=== PATIENT | female | born 1955 | race Caucasian/White ===

== ENCOUNTER 2022-02-22 10:30 | Outpatient (RCR) | payer BC, SELFPAY ==
--- NOTE | 2022-02-01 14:59 | URNOTE ---
Prior authorization received for [employer]ure[employer] Partager ([id number]). Per [employer] for - Prior authorization is not required Ref#[id number].
[2022-02-22 11:27] LABS: Calcium* 10.2 mg/dL (8.4-10.6); Creatinine* 0.6 mg/dL (0.5-1.5); Estimated Glomerular Filt Rate 100 ml/min
[2022-02-22] MEDS: DENOSUMAB 60 MG/ML SYRINGE SUBCUT (11:48)
--- NOTE | 2022-02-22 13:08 | ONC.NURNOTE ---
Accompanied patient to her oncology visit today. Side effects of Prolia reviewed and printed information given to patient. Consent obtained.
--- NOTE | 2022-04-10 09:00 | PC.NURSE ---
Pt called today to inquire about the location for her MRI. RN reviewed notes and shared it would be [facility] in [place] (now called [facility]). Provided pt with contact number to call and schedule.
== END 2022-05-28 23:59 | disposition home or self-care (01) ==
LOC: CCIC 10:30
PROVIDERS: PCP Physician Assistant; Referring Provider Physician Assistant; Visit Provider Internal Medicine Hematology & Oncology
DX: C50.911 Malignant neoplasm of unspecified site of right female breast (principal); Z17.0 Estrogen receptor positive status [ER+]; Z79.811 Long term (current) use of aromatase inhibitors; R23.2 Flushing; N95.2 Postmenopausal atrophic vaginitis; E04.1 Nontoxic single thyroid nodule
CPT/HCPCS: 36415; 82310; 82565; 96372; 99212; 99214; 99215; J0897

== ENCOUNTER 2022-05-24 09:41 | Outpatient (CLI) | payer BC, SELFPAY ==
--- NOTE | 2022-05-24 09:45 | CRLHL7_ITS ---
For Patients: As a result of the Century Cures Act, medical imaging exams and procedure reports are released immediately into your electronic medical record. You may view this report before your referring provider. If you have questions, please contact your health care provider. INDICATION: Thyroid nodules COMPARISON: 05/12/2021 [facility] TECHNIQUE: Avelar scale and color Doppler images were acquired of the thyroid gland. FINDINGS: The thyroid gland demonstrates heterogeneous echogenicity and has a smooth outer contour. The right lobe measures 6.4 x 2.2 x 2.2 cm and the left lobe measures 6.5 x 2.0 x 1.7 cm in size. The isthmus measures 1.1 cm. Stable hypoechoic nodule within the right thyroid lobe measuring 1.0 x 0.7 x 1.3 cm, previously measuring 1.1 cm. Additional hypoechoic nodule right thyroid lobe measuring 1.2 x 0.7 x 0.7 cm, previously measuring 1.0 cm. Solid and cystic nodule inferior pole left thyroid lobe measures 1.8 x 1.3 x 1.4 cm, previously measuring 1.5 cm. Stable near isoechoic nodule measuring 8 x 5 x 6 millimeters, previously measuring 6 millimeters. The color Doppler images demonstrate normal vascularity. There is no evidence of cervical lymphadenopathy or parathyroid mass. IMPRESSION: Overall stable morphology and size of bilateral nodules. Additional follow-up in 1 year suggested. Dictated by Kamari Beckford MD @ 05/24/2022 11:52:36 AM (Electronically Signed)
== END 2022-05-24 09:42 | disposition home or self-care (01) ==
LOC: US 09:43
PROVIDERS: PCP Physician Assistant; Visit Provider Internal Medicine Hematology & Oncology
DX: E04.2 Nontoxic multinodular goiter (principal)
CPT/HCPCS: 76536

== ENCOUNTER 2022-12-06 12:30 | Outpatient (RCR) | payer BC, MEDICARE, SELFPAY ==
--- NOTE | 2022-08-21 15:38 | ONC.NURNOTE ---
prescription for anastrozole refilled by Dr. Mcdermott and sent to pt's pharmacy.
[2022-08-24 13:41] LABS: Calcium* 9.6 mg/dL (8.4-10.6); Creatinine* 0.6 mg/dL (0.5-1.5); Est. Creatinine Clearance* 55.27; Estimated Glomerular Filt Rate 100 ml/min
[2022-08-24] MEDS: DENOSUMAB 60 MG/ML SYRINGE SUBCUT (14:14)
== END 2022-12-19 23:59 | disposition home or self-care (01) ==
LOC: CCIC 12:30
PROVIDERS: PCP Physician Assistant; Referring Provider Physician Assistant; Visit Provider Internal Medicine Hematology & Oncology
DX: C50.911 Malignant neoplasm of unspecified site of right female breast (principal); Z17.0 Estrogen receptor positive status [ER+]; Z79.811 Long term (current) use of aromatase inhibitors; M85.852 Other specified disorders of bone density and structure, left thigh; R23.2 Flushing; N95.2 Postmenopausal atrophic vaginitis; E04.1 Nontoxic single thyroid nodule; Z90.11 Acquired absence of right breast and nipple
CPT/HCPCS: 36415; 82310; 82565; 96372; 99212; 99213; 99214; J0897

== ENCOUNTER 2023-04-18 12:41 | Outpatient (CLI) | payer MEDICARE, BC, SELFPAY ==
--- OUTSIDE RECORDS SUMMARY | 2023-04-18 12:43 | XMS_ITS ---
Author Name Unknown Organization [facility] Address [address] [place] [address] Care Team Providers Care Kitchen Porter Name Role Phone Unavailable Unavailable Unavailable Surgery Details Not on file Complications Check Surgery Details section. Procedure Estimated Blood Loss Check Surgery Details section. Procedure Findings Check Surgery Details section. Procedure Specimens Taken Check Surgery Details section.
--- OUTSIDE RECORDS SUMMARY | 2023-04-18 12:43 | XMS_ITS | Clinical Summary ---
Author Name Unknown Organization [employer] [facility] Address [place], [place] [address] Care Team Providers Care Entry Level Machine Operator Name Role Phone Arin Mejia Primary Care Provider [phone]- [phone] Allergies Active Allergy Reactions Criticality Noted Date Comments Cephalexin Rash 06/18/2006 Medications Medication Sig Dispensed Refills Start Date End Date Status medication order composerIndications :Invasive ductal carcinoma of breast, right (HC) Dispense right breast mastectomy bra and prosthetic. 3 Device 3 11/17/2021 Active anastrozole (ARIMIDEX) 1 mg tablet Take 1 mg by mouth once daily. 0 05/17/2022 Active calcium carbonate-vitamin D3, 600 mg-400 unit, 600 mg-10 mcg (400 unit) tablet Take 1 Tablet by mouth two times daily with meals. 0 05/28/2022 Active hydroCHLOROthiazide (HCTZ) 25 mg tabletIndications:H TN (hypertension) Take 1 Tablet (25 mg) by mouth once daily. 90 Tablet 3 09/25/2022 Active losartan (COZAAR) 100 mg tabletIndications:H TN (hypertension) Take 1 Tablet (100 mg) by mouth once daily. 90 Tablet 3 09/25/2022 Active BiPapIndications:Ob structive sleep apnea BIPAP machine for home use at pressure: 4-25 PS: 4 , Heated humidifier x 1, Humidifier chamber x 1, Full face mask with cushion x 1, Heated tubing x 1, Headgear x 1, Filters: Disposable x 1pk & Reusable x 1pk, Length of Need: 99 months, Frequency of use: Daily 0 03/07/2023 Active Active Problems Problem Noted Date Diagnosed Date Stenosis of aorta 07/24/2022 Overview: Borderline mild, noted on echocardiogram July 2022. Echocardiogram was done due to new heart murmur. Osteopenia 07/06/2022 Overview: Prolia, managed by Dr. 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 US 05/24/2022, stable. Invasive ductal carcinoma of breast, right 04/19 HTN (hypertension) 06/15/2020 SUZANNE, 02/02/2017 AHI 50 05/25/2017 Morbid obesity with BMI of 40.0-44.9, adult 100 08/2016 Plantar fascial fibromatosis 05/16/2007 ANEMIA/HX 06/18/2006 Helicobacter pylori (H. pylori) 06/18/2006 Resolved Problems Problem Noted Date Diagnosed Date Resolved Date Routine adult health maintenance 12/03/2015 04/23/2020 Overview: Colonoscopy 11/2015 normal repeat in 10 years Encounters Date Type Department Care Team Description 01/23/2023 12:10 PM CUSTOMER SERVICE OPERATOR Office Visit [facility] [address] [place] [address] Maggy Reeves, LEON Person Under Investigation (PUI) (Sore throat, body aches, fatigue x 2 days.) 01/23/2023 Travel from Last 3 Months Immunizations Name Administration Dates Next Due AMB Influenza, IIV4 PF (=>6 mos Flulaval,Fluzone Fluarix)(Flu Clinic Only) 12/29/2015 COVID-19 vaccine (Moderna 100mcg/0.5mL) PF, MDV 04/07/2021,05/14/2020,04/16/2020 Influenza, IIV3 (Age 6-35 mos) 12/14/2010 Influenza, IIV3 (Age >=3 years) 12/11/19 12,12/14/2010,01/25/2008,01/08/20 07,12/20/2005 Influenza, IIV4 01/30/2022, 9,01/10/2018,12/16/19 17,12/29/2015 Influenza,CCIIV4 PRESERV FREE 01/26/2020 Td (Age >=7 Years) 12/07/2003 Tdap 07/06/2022,04/12/2012 Zoster (Shingrix-RZV, recombinant) 02/10/2019, Family History Medical History Relation Name Comments Diabetes Father Heart Disease Father Cancer Mother liver, lung can cer Cancer-breast Other x2 - Maternal and Paternal cousins Cancer-breast Paternal Aunt Cancer-breast Sister Anesthesia Malignant Hyperthermia No Family History Blood Disease No Family History Cancer-colon No Family History Cancer-ovarian No Family History Cancer-prostate No Family History Relation Name Status Comments Father Mother Other Paternal Aunt Sister Social History Tobacco Use Types Packs/Day Years Used Date Smoking Tobacco: Never Smokeless Tobacco: Never Tobacco Cessation:Counseling Given: Yes Alcohol Use Standard Drinks/Week Comments Not Currently 0 (1 standard drink = 0.6 oz pur e alcohol) 2 drinks per 2-3 months PHQ-2 Answer Date Recorded PHQ-2 TOTAL SCORE 0 07/06/2022 Social Connections Answer Date Recorded Frequency of Communication with Friends and Fami ly 0 07/06/2022 Financial Resource Strain Answer Date R ecorded Difficulty of Paying Living Expenses 3 07/06/2022 Difficulty of Paying Living Expenses Not on file 07/06/2022 Food Insecurity Answer Date Recorded Worried About Running Out of Food in the Last Ye ar 1 07/06/2022 Transportation Needs Answer Date Record ed Lack of Transportation (Medical) 1 07/06/2022 Housing Stability Answer Date Recorded Unable to Pay for Housing in the Last Year 1 07/06/2022 Sex and Gender Information Value Date Recorded Sex Assigned at Not on file Gender Identity Not on file Sexual Orientation Not on file Obstetrics History Para Term AB IAB SAB Ectopic Multiple Livin g Live Births 4 3 3 Date Outcome GA Total Labor Labor/2nd/3rd Weight Sex Delivery Anes PTL Elva A1 A5 Name Cl in Term Term Term Comments 1 miscarriage Last Filed Vital Signs Vital Sign Reading Time Taken Comments Blood Pressure 172/72 01/23/2023 1:30 PM CUSTOMER SERVICE OPERATOR Pulse 74 01/23/2023 1:30 PM CUSTOMER SERVICE OPERATOR Temperature 37.1 ??C (98.8 ??F) 01/23/2023 1:30 PM CS T Respiratory Rate 20 01/23/2023 1:30 PM CUSTOMER SERVICE OPERATOR Oxygen Saturation 98% 01/23/2023 1:30 PM CUSTOMER SERVICE OPERATOR Inhaled Oxygen Concentration - - Weight 132.9 kg (293 lb 1.6 oz) 01/23/2023 1:30 PM CUSTOMER SERVICE OPERATOR Height 170.8 cm (5' 7.24) 07/06/2022 1 0:43 AM CDT Body Mass Index 45.57 07/06/2022 10:43 AM CDT Plan of Treatment Upcoming Encounters Date Type Department Care Team (Late st Contact Info) Description 06/07/2023 11:00 AM CDT Office Visit [facility] [address] [place] [address] Marvin Ortiz MD [address] [place] [address] Health Maintenance Due Date Last Done Comments COVID-19 vaccine series ( season) 2022 04/07/2021, 05/14/2020, 04/16/2020 DEXA/DXA scan for age 65+ 2022 Influenza for age 65+ 2022 01/30/2022 , 01/26/2020, 2018, Additional history exists Medicare Wellness for age 65+ 2022 Pneumococcal series for age 65+ (1 of 1 - PCV) 2022 BMI (ht and wt on same day) for age 18+ 07/07/2023 07/06/2022, 05/13/2021, 12/15/2020, Additional history exists Depression screening for age 12+ 07/07/2023 07/06/2022, 05/06/2021, 05/04/2021, Additional history exists Mammogram for age 45-75 07/07/2023 07/07/19 23, 04/15/2021, 04/11/2021, Additional history exists Pap test for age 21-65 07/06/2025 , 07/06/2022, 2018, Additional history exists Colonoscopy through age 75 12/02/202512/02, 12/03/2015, 12/03/2015, Additional history exists Lipids for age 45-75 07/25/2027 07/24/2022, 04/23/2020, 2018, Additional history exists Tetanus booster 07/06/2032 07/06/2022, 03/2012, 12/07/2003 Zoster (shingles) series for age 50+ Completed 02/10/2019, 2018 Hepatitis C screening for ag e 18-79 Completed 07/06/2020 Tdap Completed 07/06/2022, 04/12/2012 HIV for age 15-65 Completed 07/24/2022 Procedures Procedure Name Priority Date/Time Associated Diagnosis Comments STREP A PCR STAT 01/23/2023 2:10 PM CUSTOMER SERVICE OPERATOR Sore throat COVID-19 MOLECULAR STAT 01/23/2023 2: 10 PM CUSTOMER SERVICE OPERATOR Sore throat Fatigue, unspecified type INFLUENZA A/B PCR Routine 01/23/2023 2:1 0 PM CUSTOMER SERVICE OPERATOR Sore throat Fatigue, unspecified type THROAT RAPID STREP A WITH REFLEX STAT 01/23/2023 2:10 PM CUSTOMER SERVICE OPERATOR Sore throat from Last 3 Months Results * COVID-19 MOLECULAR [[id number]] (01/23/2023 2:10 PM CUSTOMER SERVICE OPERATOR) COVID 19 [facility] MOLECULAR Negative Negative 01/24/2023 6:12 PM CUSTOMER SERVICE OPERATOR [facility]AL [facility] TESTING LABORATORY [facility] 01/24/2023 6:12 PM CUSTOMER SERVICE OPERATOR [facility]- N[facility]AL LABORATORY Comment:Specimen submitted t o [facility] for testing. Other SPECIMEN FROM NASAL FOSSAE / Unknown Non-Blood / Unknown 01/23/2023 2:10 PM CUSTOMER SERVICE OPERATOR 01/23/2023 2:16 PM CUSTOMER SERVICE OPERATOR Narrative [facility] - 01/24/2023 6:12 PM CUSTOMER SERVICE OPERATOR All PCR tests are subject to false negative result due to variability in viral load and collection technique. A negative result does not rule out a SARS-CoV-2 infection. Clinical correlation required. This test has been authorized by FDA under an Emergency Use Authorization (EUA). This test is only authorized for the duration of time the declaration that circumstances exist justifying the authorization of the emergency use of in vitro diagnostic tests for detection of SARS-CoV-2 virus and/or diagnosis of COVID-19 infection under section 564(b)(1) of the Act, 21 U.S.C. 360bbb-3(b) (1), unless the authorization is terminated or revoked sooner. Asya MCKINNEY MICROBIOLOGY Performing Organization Address City/[facility]/ZIP Co de Phone Number [facility] [address] [place] [address], * STREP A PCR (01/23/2023 2:10 PM CUSTOMER SERVICE OPERATOR) GROUP A STREP Negative 01/24/2023 12:28 AM CUSTOMER SERVICE OPERATOR [facility] Throat SPECIMEN FROM THROAT / Unknown Non-Blood / Unknown 01/23/2023 2:10 PM CUSTOMER SERVICE OPERATOR 01/23/2023 2:35 PM CUSTOMER SERVICE OPERATOR Asya MCKINNEY MICROBIOLOGY Performing Organization Address City/[facility]/ZIP Co de Phone Number [facility] [address] [place] [address], [place] * INFLUENZA A/B PCR (01/23/2023 2:10 PM CUSTOMER SERVICE OPERATOR) INFLUENZA A PCR Negative 01/24/2023 6:12 PM CUSTOMER SERVICE OPERATOR [facility] INFLUENZA B PCR Negative 01/24/2023 6:12 PM CUSTOMER SERVICE OPERATOR [facility] Other SPECIMEN FROM NASAL FOSSAE / Unknown Non-Blood / Unknown 01/23/2023 2:10 PM CUSTOMER SERVICE OPERATOR 01/23/2023 2:16 PM CUSTOMER SERVICE OPERATOR Asya MCKINNEY MICROBIOLOGY [facility] [address] [place] [address], [place] * THROAT RAPID STREP A WITH REFLEX [63890.1] - age 0 through 17 yrs (01/23/2023 2:10 PM CUSTOMER SERVICE OPERATOR) STREP A ANTIGEN Negative 01/23/2023 2:35 PM CUSTOMER SERVICE OPERATOR [facility] Comment:PCR to follow. Throat SPECIMEN FROM THROAT / Unknown Non-Blood / Unknown 01/23/2023 2:10 PM CUSTOMER SERVICE OPERATOR 01/23/2023 2:16 PM CUSTOMER SERVICE OPERATOR Asya MCKINNEY MICROBIOLOGY [facility] [address] [place] [address] from Last 3 Months Care Teams Entry Level Machine Operator Relationship Specialty Start Date End Date Arin Mejia PA [address] [place] [address] PCP - General Physician Court Liaison 09/25/22
--- OUTSIDE RECORDS SUMMARY | 2023-04-18 12:43 | XMS_ITS | Clinical Summary ---
Author Name Unknown Organization [facility] Address [address] [place] [address] Care Team Providers Care Ropeman Name Role Phone Unavailable Primary Care Provider Unavailabl e Source Comments Patient records contain information from all sites at [facility]. For routine questions regarding patient records, call [phone] during business hours, M-F 8:00 AM - 5:00 PM Central Time. Record requests for emergency care only can be directed to [phone] at any time.[facility] Allergies Active Allergy Reactions Criticality Noted Date Comments Cephalosporins Rash,Edema (Reselect Reaction) High 0 06/18/2006 Medications Medication Sig Dispensed Refills Start Date End Date Status losartan (COZAAR) 100 mg tablet Take 1 tablet by mouth daily. 0 05/27/2021 Active Active Problems Problem Noted Date Diagnosed Date Malignant Neoplasm Of Breast Upper Outer Quadrant Female Right 07/11/2021 Cancer Staging:Pathologic stage from 05/26/2021:Stage IIA(pT2, pN1mi, cM0, G3, ER+, [place]+, HER2-, Oncotype DX score: 8) - Unsigned Family History Medical History Relation Name Comments Breast cancer Sister Relation Name Status Comments Sister Social History Tobacco Use Types Packs/Day Years Used Date Smoking Tobacco: Never Alcohol Use Standard Drinks/Week Comments Yes 0 (1 standard drink = 0.6 oz pur e alcohol) Occasional Nutrition Answer Date Recorded Nutrition: EVOO Fat Source Unknown 07/04 Nutrition: Servings of Fruits/Vegetables per Day Not on file 07/04/2021 Dental Answer Date Recorded Dental: Regular Dentist Unknown 07/05/19 Sex and Gender Information Value Date Recorded Sex Assigned at Not on file Gender Identity Not on file Sexual Orientation Not on file Last Filed Vital Signs Vital Sign Reading Time Taken Comments Blood Pressure 162/76 07/13/2021 10:20 AM CDT Pulse 82 07/13/2021 10:20 AM CDT Temperature 36.1 ??C (97 ??F) 07/13/2021 10:20 AM CDT Respiratory Rate - - Oxygen Saturation - - Inhaled Oxygen Concentration - - Weight 132 kg (290 lb 9.1 oz) 07/13/2021 10:20 A M CDT Height - - Body Mass Index - - Plan of Treatment Health Maintenance Due Date Last Done Comments Bone Density Scan (Osteoporo sis Screen) 1957 CT Colonography 1957 Cervical Cancer Screening 1957 Cologuard 1957 Colonoscopy 1957 Colorectal Cancer Screening 1957 FIT 1957 HIV Screening 1957 Hepatitis C Screening 1955 Mammogram 05/03/2022 05/03/2021, 04/12, 04/28/2021, Additional history exists COVID-19 Vaccine (4 - 2022-2 4 season) 2022 04/07/2021, 05/14/2020, 04/16/2020 Pneumococcal vaccine (65+ ye ars) (1 of 1 - PCV) 2022 Influenza Vaccine (#1) 2022 , 01/26/2020, 2018, Additional history exists Depression Screening (Annual PHQ-2) 03/12/2023 Fall Risk Screen (Annual) 03/12/2023 Creatinine Level (Kidney Fun ction Test) 09/26/2023 09/25/2022, 07/24/2022, 05/13/2021, Additional history exists Potassium Level 09/26/2023 09/25/2022, 07/10, 05/13/2021, Additional history exists Sodium Level 09/26/2023 09/25/2022, 07/10, 05/13/2021, Additional history exists Fasting Glucose for Diabetes Screening 09/25/2025 09/25/2022, 07/24/2022, 05/13/2021, Additional history exists DTaP,Tdap,and Td Vaccines (3 - Td or Tdap) 07/06/2032 07/06/2022, 04/12/2012 Zoster Vaccines Completed 02/10/2019, [address] [facility] [address]
--- OUTSIDE RECORDS SUMMARY | 2023-04-18 12:43 | XMS_ITS | Referral Summary ---
Author Name Unknown Organization [facility] Address [address] [place] [address] Care Team Providers Care Target Setter Name Role Phone Unavailable Primary Care Provider Unavailabl e Source Comments Patient records contain information from all sites at [facility]. For routine questions regarding patient records, call [phone] during business hours, M-F 8:00 AM - 5:00 PM Central Time. Record requests for emergency care only can be directed to [phone] at any time.[facility] Allergies Active Allergy Reactions Criticality Noted Date [...] from 05/26/2021:Stage IIA(pT2, pN1mi, cM0, G3, ER+, [place]+, HER2-, Oncotype DX score: 8) - Unsigned Social History Tobacco Use Types Packs/Day Years [...] Mass Index - - Plan of Treatment Not on file [address] [facility] [address]
--- NOTE | 2023-04-18 13:00 | CRLHL7_ITS ---
For Patients: As a result of the Century Cures Act, medical imaging exams and procedure reports are released immediately into your electronic medical record. You may view this report before your referring provider. If you have questions, please contact your health care provider. DXA BONE MINERAL DENSITY STUDY Current height (in): 67/0. Weight (lb): 290.0. Menopause age: 57. Ethnicity: White, . Reason for exam: watermaster (current) use of aromatase inhibitors. History of breast cancer. 1. Have you had a previous hip or vertebral fracture? No. 2. Have you had any fractures during your adult life which did not result from significant trauma (e.g., auto accident)? No. 3. Did either of your parents have a hip fracture? No. 4. Do you smoke? No. 5. Have you ever taken Glucocorticoids? No. 6. Do you have rheumatoid arthritis? No. 7. Do you have secondary osteoporosis? No. 8. Do you drink 3 or more alcoholic drinks per day? No. 9. Are you being treated for osteoporosis? No. 10. Have you ever taken any of the following medications: Actonel, Evista, Fosamax, Miacalcin, Reclast, Boniva, Forteo, HRT (i.e. estrogen/hormone therapy), Protelos, Prolia, Vitamin D, Calcium, other ??? please specify. ANSWER: Yes, vitamin D, calcium, Prolia. 11. Do you have any of the following medical conditions: Anorexia or bulimia, asthma or emphysema, end stage renal disease, hyperparathyroidism, any seizure disorders, cancer, inflammatory bowel diseases, hysterectomy, other ??? please specify. ANSWER: No. 12. What was your maximum height (inches)? 70. 13. Do you perform weight bearing exercise regularly? No. 14. Do you regularly consume dairy products? Yes. 15. Do you drink caffeinated beverages? Yes. 16. At what age did your period start? 14. 17. Are you premenopausal? No. 18. How many full term pregnancies have you had? 3. 19. Have you ever missed your period for more than 6 months in a row (not including or menopause)? No. TECHNIQUE: Bone mineral density study was performed using the [employer]. FINDINGS: The results of the study expressed as bone mineral density (BMD) are as follows: Lumbar spine L1 to L4: BMD: 1.092 g/cm2. T-score: 0.4. Z-score: 2.2. Neck Left: BMD: 0.652 g/cm2. T-score: -1.8. Z-score: -0.2 Right: BMD: 0.640 g/cm2. T-score: -1.9. Z-score: -0.4 Total Left: BMD: 1.065 g/cm2. T-score: 1.0. Z-score: 2.3 Right: BMD: 1.033 g/cm2. T-score: 0.7. Z-score: 2.0 IMPRESSION: Osteopenia. *Comparison exams done prior to 08/2019 were performed on different unit, [facility]. COMPARISON: Compared with scan of 07/27/2021, the bone mineral density has increased by 6.5 percent at the spine and increased by 4.7 percent at the hip. FRAX 10-year Fracture Risk Major Osteoporotic Fracture: 8.6 percent Hip Fracture: 1.1 percent Reported Risk Factors: [place] () Neck BMD = 0.640, BMI = 43.2 Kamari Beckford M.D. Diagnostic Radiologist [email or web address] Transcribed: 2:58 pm DW/Dictated by: Kamari Beckford MD @ 04/19/2023 12:30:00 PM (Electronically Signed)
--- NOTE | 2023-04-18 14:00 | CRLHL7_ITS ---
For Patients: As a result of the Cures Act, medical imaging exams and procedure reports are released immediately into your electronic medical record. You may view this report before your referring provider. If you have questions, please contact your health care provider. INDICATION: Nontoxic multinodular goiter TECHNIQUE: Ultrasound thyroid with lua-scale and color Doppler analysis. COMPARISON: 05/24/2022. FINDINGS: Right lobe: 5.5 x 1.8 x 1.8 cm. Lesion 1: Hypoechoic nodule lower pole Measures 7 x 9 x 9 millimeters, previously measuring 12 x 7 x 7 millimeters. Lesion 2: Hypoechoic nodule midportion right thyroid lobe measures 7 x 10 x 9 millimeters, previously measuring 10 x 7 x 13 millimeters. Left lobe: 5.7 x 2.1 x 1.7 cm. Lesion 1: Solid and cystic nodule left thyroid lobe measures 5 x 7 x 11 millimeters, previously measuring 8 x 5 x 6 millimeters. Lesion 2: Solid and cystic nodule inferior pole measures 12 x 14 x 16 millimeters, previously measuring 18 x 13 x 14 millimeters. Isthmus: 6 millimeters Echotexture of the thyroid parenchyma is heterogeneous. Color Doppler analysis demonstrates normal vascularity. No evidence of lymphadenopathy or parathyroid mass. IMPRESSION: Stable bilateral thyroid nodules. - ACR [email or web address] TR1: Benign No FNA TR2: Not Suspicious No FNA TR3: Mildly Suspicious FNA if greater than or equal to 2.5 cm Follow if greater than or equal to 1.5 cm TR4: Moderately Suspicious FNA if greater than or equal to 1.5 cm Follow if greater than or equal to 1 cm TR5: Highly Suspicious FNA if greater than or equal to 1 cm Follow if greater than or equal to 0.5 cm Dictated by Kamari Beckford MD @ 04/19/2023 9:10:58 AM (Electronically Signed)
== END 2023-04-18 12:42 | disposition home or self-care (01) ==
PROVIDERS: PCP Physician Assistant; Visit Provider Physician Assistant
DX: E04.2 Nontoxic multinodular goiter (principal); M85.89 Other specified disorders of bone density and structure, multiple sites; Z79.811 Long term (current) use of aromatase inhibitors
CPT/HCPCS: 76536; 77080

== ENCOUNTER 2023-08-01 14:00 | Outpatient (RCR) | payer MEDICARE, BC, SELFPAY ==
--- NOTE | 2023-04-27 10:39 | ONC.NURNOTE ---
Patient informed that FAYE Arndt had reviewed her bone density and thryroid US. -Patient informed that her bone density was improved from her 07/2021 exam. She continues to have osteopenia. She wonders if she should continue Prolia (it was discontinued due to insurance coverage). I told her that we could discuss this more at her follow up. -Patient informed her thyroid ultrasound was stable. We will plan to repeat in one year. Patient verbalizes understanding.
[2023-07-26 11:13] LABS: Chloride* 100 mmol/L (96-114); Potassium* 3.9 mmol/L (3.6-5.1); Sodium* 139 mmol/L (135-149)
[2023-07-26 11:16] LABS: Creatinine* 0.6 mg/dL (0.5-1.5); Estimated Glomerular Filt Rate 100 ml/min
[2023-07-26 11:17] LABS: Anion Gap 8 mEq/L (7-15); Blood Urea Nitrogen* 13 mg/dL (7-30); Calcium* 9.6 mg/dL (8.4-10.6); Carbon Dioxide* 31 mmol/L (20-32); Glucose* 113 mg/dL (60-115)
--- NOTE | 2023-07-27 09:03 | URNOTE ---
Prior auth is not required for Prolia ([id number]). Pt has medicare/ [place]. Services are based on medical necessity and follow medicare guidelines.
[2023-08-01 14:02] VITALS: BP 145/86; PULSE 92; RESP 16; TEMP 37.2; O2SAT 96
[2023-08-01] MEDS: DENOSUMAB 60 MG/ML SYRINGE SUBCUT (14:12)
== END 2023-09-18 23:59 | disposition home or self-care (01) ==
LOC: CCIC 14:00
PROVIDERS: PCP Physician Assistant; Referring Provider Physician Assistant; Visit Provider Physician Assistant
DX: C50.911 Malignant neoplasm of unspecified site of right female breast (principal); Z17.0 Estrogen receptor positive status [ER+]; M85.80 Other specified disorders of bone density and structure, unspecified site; Z79.811 Long term (current) use of aromatase inhibitors
CPT/HCPCS: 36415; 80048; 96372; 99214; G0463; J0897

== ENCOUNTER 2023-12-18 10:26 | Outpatient (CLI) | payer MEDICARE, BC, SELFPAY ==
--- NOTE | 2023-12-18 10:45 | CRLHL7_ITS ---
For Patients: As a result of the Cures Act, medical imaging exams and procedure reports are released immediately into your electronic medical record. You may view this report before your referring provider. If you have questions, please contact your health care provider. Indication: Localized swelling, mass and lump, right upper limb Technique: Grayscale and color Doppler ultrasound of the right axilla performed Comparison: CT-PET 05/12/2021, MRI breast 04/21/2021 Findings: Normal right axillary lymph node is present measuring 1.7 x 0.7 x 1.0 cm. Normal central fatty hilum and internal vascularity. No suspicious cortical thickening. Impression: Normal right axillary lymph node. No suspicious findings. Dictated by Kamari Beckford MD @ 12/18/2023 11:23:39 AM (Electronically Signed)
--- NOTE | 2023-12-18 10:45 | CRLHL7_ITS ---
For Patients: As a result of the Century Cures Act, medical imaging exams and procedure reports are released immediately into your electronic medical record. You may view this report before your referring provider. If you have questions, please contact your health care provider. Indication: Right chest wall lump Technique: Grayscale and color Doppler ultrasound of the right medial chest wall performed Comparison: Breast MRI 04/21/2021, CT PET 05/12/2021 Findings: Targeted sonogram to the medial right chest wall performed near mastectomy scar performed. A small focus of increased echotexture is present within the subcutaneous fat measuring 7 x 4 x 3 millimeters. No internal vascularity. Impression: Benign scar tissue is present within the medial right chest wall. No suspicious findings. Dictated by Kamari Beckford MD @ 12/18/2023 11:22:27 AM (Electronically Signed)
--- OUTSIDE RECORDS SUMMARY | 2023-12-18 11:33 | XMS_ITS | Clinical Summary ---
Author Organization [facility] Address [place], [place] [address] Care Team Providers Care Research And Development Director Name Role Phone Arin Mejia Primary Care Provider [phone] Allergies Active Allergy Reactions Criticality Noted Date Comments Cephalexin Rash 06/18/2006 Medications Medication Sig Dispensed Refills Start Date End Date Status medication order composerIndications :Invasive ductal carcinoma of breast, right (HC) Dispense right breast mastectomy bra and prosthetic. 3 Device 3 11/17/2021 Active anastrozole (ARIMIDEX) 1 mg tablet Take 1 mg by mouth once daily. 05/17/2022 Active calcium carbonate-vitamin D3, 600 mg-400 unit, 600 mg-10 mcg (400 unit) tablet Take 1 Tablet by mouth two times daily with meals. 05/28/2022 Active BiPapIndications:Ob structive sleep apnea BIPAP machine for home use at pressure: AUTO epap 4-20cmw PS 4 cmw , choice of mask, lifetime length of need, daily use. 1 Each 11 06/07/2023 Active Nystop powder Apply topically to affected area(s). 07/26/2023 Active hydroCHLOROthiazide 25 mg tabletIndications:H TN (hypertension) Take 1 Tablet (25 mg) by mouth once daily. 90 Tablet 3 08/02/2023 Active losartan (COZAAR) 100 mg tabletIndications:H TN (hypertension) Take 1 Tablet (100 mg) by mouth once daily. 90 Tablet 3 08/02/2023 Active Active Problems Problem Noted Date Diagnosed Date Prediabetes 08/06/2023 Hypertriglyceridemia 08/06/2023 Stenosis of aorta 07/24/2022 Overview (07/24/2022): Borderline mild, noted on echocardiogram July 2022. Echocardiogram was done due to new heart murmur. Osteopenia 07/06/2022 Overview (07/06/2022): Prolia, managed by Dr. Mcdermott, at 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 US 05/24/2022, stable. Invasive ductal carcinoma of breast, right 04/19 HTN (hypertension) 06/15/2020 SUZANNE, 02/02/2017 AHI 50 05/25/2017 Morbid obesity with BMI of 40.0-44.9, adult 08/2016 Plantar fascial fibromatosis 05/16/2007 ANEMIA/HX 06/18/2006 Helicobacter pylori (H. pylori) 06/18/2006 Resolved Problems Problem Noted Date Diagnosed Date Resolved Date Routine adult health maintenance 12/03/2015 04/23/2020 Overview (12/03/2015): Colonoscopy 11/2015 normal repeat in 10 years Encounters Date Type Department Care Team Description 11/07/2023 12:26 PM CDT - 11/07/2023 1:43 PM CDT Emergency [facility] [address] [place] [address] Asya Sanchez PA Contusion of left chest wall, initial encounter (Primary Dx) Discharge Disposition: Home Self Care 11/07/2023 Travel from Last 3 Months Immunizations Name [...] Answer Date Recorded PHQ-2 TOTAL SCORE 0 08/02/2023 Social Connections Answer Date Recorded Frequency of Communication with Friends and Fami ly 0 08/02/2023 Financial Resource Strain Answer Date R ecorded Difficulty of Paying Living Expenses 3 08/02/2023 Difficulty of Paying Living Expenses Not on file 08/02/2023 Food Insecurity Answer Date Recorded Worried About Running Out of Food in the Last Ye ar 1 08/02/2023 Transportation Needs Answer Date Record ed Lack of Transportation (Medical) 1 08/02/2023 Housing Stability Answer Date Recorded Unable to Pay for Housing in the Last Year 1 08/02/2023 Sex and Gender Information Value Date Recorded Sex Assigned at Not on file Gender Identity Not on file Sexual Orientation Not on file Obstetrics History Para Term AB IAB SAB Ectopic Multiple Livin g Live Births 4 3 3 Date Outcome GA Total Labor Labor/2nd/3rd Weight Sex Type Anes PTL Elva A1 A5 Name Clin Term Term Term Comments 1 miscarriage Last Filed Vital Signs Vital Sign Reading Time Taken Comments Blood Pressure 122/80 11/07/2023 1:07 PM CDT Pulse 76 11/07/2023 1:07 PM CDT Temperature 36.6 ??C (97.8 ??F) 11/07/2023 1 1:58 AM CDT Respiratory Rate 18 11/07/2023 11:5 8 AM CDT Oxygen Saturation 96% 11/07/2023 1:07 PM CDT Inhaled Oxygen Concentration - - Weight 129.5 kg (285 lb 6.4 oz) 024 11:58 AM CDT Height 172.7 cm (5' 8) 11/07/2023 11:5 8 AM CDT Body Mass Index 43.39 11/07/2023 11:58 AM CDT Plan of Treatment Health Maintenance Due Date Last Done Comments Pneumococcal series for age 65+ (1 of 1 - PCV) 2022 COVID-19 vaccine series (2023- season) 2023 04/07/2021, 05/14/2020, 04/16/2020 Influenza for age 65+ 11/11/2023 01/30/2022 , 01/26/2020, 2018, Additional history exists Mammogram for age 45-75 07/08/2024 07/09/19, 07/06/2022, 04/15/2021, Additional history exists BMI (ht and wt on same day) for age 18+ 08/01/2024 08/02/2023, 06/07/2023, 07/06/2022, Additional history exists Depression screening for age 12+ 08/01/2024 08/02/2023, 07/06/2022, 05/06/2021, Additional history exists Medicare Wellness for age 65+ 08/02/2024 08/02/2023 Colonoscopy through age 75 12/02/202512/02, 12/03/2015, 12/03/2015, Additional history exists Lipids for age 45-75 08/01/2028 08/02/2023, 07/24/2022, 04/23/2020, Additional history exists Tetanus booster 07/06/2032 07/06/2022, 03/2012, 12/07/2003 Zoster (shingles) series for age 50+ Completed 02/10/2019, 2018 Hepatitis C screening for ag e 18-79 Completed 07/06/2020 Tdap Completed 07/06/2022, 04/12/2012 DEXA/DXA scan for age 65+ Completed 04/18/2023 Procedures Procedure Name Priority Date/Time Associated Diagnosis Comments EKG 12 LEAD STAT 11/07/2023 1:02 PM CDT EXTRA TUBE BLUE Today 11/07/2023 12:50 PM CDT CBC WITH AUTO DIFFERENTIAL STAT 11/07/2023 12:50 PM CDT TROPONIN T (HS) ACUTE W/2HR REFLEX STAT 11/07/2023 12:50 PM CDT BASIC METABOLIC PANEL STAT 11/07/2023 12:50 PM CDT CBC WITH AUTO DIFFERENTIAL STAT 11/07/2023 12:50 PM CDT XR CHEST 2 VIEWS PA AND LATERAL STAT 11/07/2023 12:13 PM CDT LIPID PANEL W REFLEX MEASURED LDL Routine 08/02/2023 1:46 PM CDT Screening for cholesterol level XR MAMMO CONNER UNI SCREEN LEFT Routine 07/09/2023 10:09 AM CDT Visit for screening mammogram SCAN-BONE DENSITOMETRY DEXA 04/18/2023 12:00 AM CHIEF CRUISER ANTI HCV Routine 07/06/2020 9:46 AM CDT Need for hepatitis C screening test COLONOSCOPY 12/03/2015 8:41 AM CDT from Last 3 Months or Most Recently Relevant to Health Maintenance Results * EKG 12 LEAD (11/07/2023 1:02 PM CDT) Interpretation Normal sinus rhythm Left axis deviation Left ventricular hypertrophy with QRS widening and repolarization abnormality Cannot rule out Septal infarct , age undetermined Abnormal ECG No previous ECGs available BEYOND NOW Ventricular Rate 71 BPM BEYOND NOW Atrial Rate 71 BPM BEYOND NOW P-R Interval 198 ms BEYOND NOW QRS Duration 128 ms BEYOND NOW QT 416 ms BEYOND NOW QTc 452 ms BEYOND NOW P [place] 47 degrees BEYOND NOW R [place] -55 degrees BEYOND NOW T [place] 62 degrees BEYOND NOW 11/07/2023 1:02 PM CDT 11/07/2023 1:45 PM CDT Asya MCKINNEY EKG ORD BEYOND NOW [place], [place] * TROPONIN T (HS) ACUTE W/2HR REFLEX (11/07/2023 12:50 PM CDT) [facility] TROPONIN T HS <6 6-10 ng/L ng/L 11/07/2023 1:13 PM CDT [facility] Blood BLOOD SPECIMEN / Unknown Venipuncture / Unknown 11/07/2023 12:50 PM CDT 11/07/2023 12:53 PM CDT Narrative [facility] - 11/07/2023 1:13 PM CDT hs-cTnT (Elecsys Troponin T Gen 5) concentration (s) above the sex-specific 99th percentile (16 ng/L or greater for males or 11 ng/L or greater for females) are indicative of myocardial injury. If initial hs-cTnT <=100 ng/L at presentation, a 0h/2h ABSOLUTE (ng/L) delta change (rising or falling) of >=10 ng/L suggests a significant change, whereas a 0h/2h delta change <=3 ng/L suggests no significant change. If initial hs-cTnT >100 ng/L at presentation, a 0h/2h/ RELATIVE (percent, %) delta change of 20% is suggested to distinguish patients with acute vs. chronic myocardial injury. There are multiple etiologies that can cause hs-cTnT increases above the 99th percentile (myocardial injury) other than acute myocardial infarction. Clinical context and careful clinical evaluation are critical for diagnosis and risk-stratification. The diagnosis of acute myocardial infarction requires a rising and/or falling pattern in hs-cTnT concentrations with at least one value above the sex-specific 99th percentile PLUS at least one of the following clinical criteria: ischemic symptoms, new or presumed new significant ST-T wave changes or new LBBB, development of pathological Q waves, imaging evidence of new loss of viable myocardium or new regional wall motion abnormality, or identification of intracoronary atherothrombosis or an acute angiographic culprit on coronary angiography. In appropriate low-risk patients with a non-ischemic electrocardiogram without active chest pain with a symptom onset >3-hours without recurrence, a single initial hs-cTnT<6 ng/L identifies patient with a very low risk in emergency department patient population. Asya MCKINNEY CHEMISTRY [facility] [address] [place] [address] * CBC WITH AUTO DIFFERENTIAL (11/07/2023 12:50 PM CDT) WHITE BLOOD COUNT 8.0 4.5 - 11.0 thou/cu mm 11/07/2023 1:00 PM [facility] RED BLOOD COUNT 4.19 4.00 - 5.20 mil/cu mm 11/07/2023 1:00 PM [facility] HEMOGLOBIN 13.0 12.0 - 16.0 g/dL 11/07/2023 1:00 PM [facility] HEMATOCRIT 38.3 33.0 - 51.0 % 11/07/2023 1:00 PM [facility] MCV 91 80 - 100 fL 11/07/2023 1:00 PM [facility] MCH 31.0 26.0 - 34.0 pg 11/07/2023 1:00 PM [facility] MCHC 33.9 32.0 - 36.0 g/dL 11/07/2023 1:00 PM [facility] RDW 13.6 11.5 - 15.5 % 11/07/2023 1:00 PM [facility] PLATELET COUNT 320 140 - 440 thou/cu mm 11/07/2023 1:00 PM CDT [facility] MPV 10.2 6.5 - 11.0 fL 11/07/2023 1:00 PM CDT [facility] % NEUT 61.3 % 11/07/2023 1:00 PM CDT [facility] % LYMPH 25.4 % 11/07/2023 1:00 PM CDT [facility] % MONO 9.0 % 11/07/2023 1:00 PM CDT [facility] % EOS 3.9 % 11/07/2023 1:00 PM CDT [facility] % BASO 0.4 % 11/07/2023 1:00 PM CDT [facility] ABSOLUTE NEUTROPHILS 4.9 1.7 - 7.0 thou/cu mm 11/07/2023 1:00 PM CDT [facility] ABSOLUTE LYMPHOCYTES 2.0 0.9 - 2.9 thou/cu mm 11/07/2023 1:00 PM CDT [facility] ABSOLUTE MONOCYTES 0.7 <0.9 thou/cu mm 11/07/2023 1:00 PM T [facility] ABSOLUTE EOSINOPHILS 0.3 <0.5 thou/cu mm 11/07/2023 1:00 PM CDT [facility] ABSOLUTE BASOPHILS 0.0 <0.3 thou/cu mm 11/07/2023 1:00 PM CDT [facility] Blood BLOOD SPECIMEN / Unknown Venipuncture / Unknown 11/07/2023 12:50 PM CDT 11/07/2023 12:53 PM CDT Asya MCKINNEY HEMATOLOGY [facility] [address] [place] [address] * EXTRA TUBE BLUE (11/07/2023 12:50 PM CDT) Blood BLOOD SPECIMEN / Unknown Extra Tube / Unknown 11/07/2023 12:50 PM CDT 11/07/2023 12:54 PM CDT Doctor Unknown LABORATORY [facility] [address] [place] [address] * (ABNORMAL) BASIC METABOLIC PANEL (11/07/2023 12:50 PM CDT) SODIUM 138 136 - 145 mmol/L 11/07/2023 1:13 PM T [facility] POTASSIUM 3.7 3.5 - 5.1 mmol/L 11/07/2023 1:13 PM T [facility] CHLORIDE 101 98 - 107 mmol/L 11/07/2023 1:13 PM [facility] CO2,TOTAL 26 22 - 29 mmol/L 11/07/2023 1:13 PM [facility] ANION GAP 11 5 - 18 11/07/2023 1:13 PM [facility] GLUCOSE 124(H) 70 - 99 mg/dL 11/07/2023 1:13 PM [facility] CALCIUM 9.7 8.8 - 10.2 mg/dL 11/07/2023 1:13 PM [facility] BUN 12 8 - 23 mg/dL 11/07/2023 1:13 PM [facility] CREATININE 0.75 0.50 - 0.90 mg/dL 11/07/2023 1:13 PM [facility] BUN/CREAT RATIO 16 10 - 20 4 1:13 PM [facility] eGFR 88(L) >90 mL/min/1.7 3m2 11/07/2023 1:13 PM [facility] Comment:As of 2021, eG FR is calculated by the CKD-EPI creatinine equation without race adjustment. ??eGFR can be influenced by muscle mass, exercise, and diet. ??The reported eGFR is an estimation only and is only applicable if the renal function is stable. Blood BLOOD SPECIMEN / Unknown Venipuncture / Unknown 11/07/2023 12:50 PM CDT 11/07/2023 12:53 PM CDT Asya Tiffany Laura MCKINNEY CHEMISTRY [facility] [address] [place] [id number] * XR CHEST 2 VIEWS PA AND LATERAL (11/07/2023 12:13 PM CDT) Anatomical Region Laterality Modality CHEST, THORAX, Lung, HEART Digit al Radiography 11/07/2023 12:2 0 PM CDT Impressions 11/07/2023 12:20 PM CDT No acute cardiopulmonary process or acute traumatic injury. Dictated by Roger Lazo MD @ 11/07/2023 12:20:02 PM (Electronically Signed) Narrative 11/07/2023 12:20 PM CDT For Patients: ??As a result of the Cures Act, medical imaging exams and procedure reports are released immediately into your electronic medical record. ??You may view this report before your referring provider. ??If you have questions, please contact your health care provider. INDICATION: : Trauma COMPARISON: CT chest on May 01, 2021 TECHNIQUE: One view(s) of the chest FINDINGS: The cardiomediastinal silhouette and pulmonary vasculature are unremarkable. There is no focal airspace consolidation, pleural effusion, or pneumothorax. Trace linear atelectatic changes/scarring in the left lower lung zone. No acute fracture or malalignment. Degenerative changes of the spine and bilateral shoulders. Likely sequela of remote, healed right proximal humeral fracture, as seen on prior CT chest. Surgical clips along the right axilla/right lateral thoracic wall. Procedure Note Roger Lazo MD - 11/07/2023 For Patients: As a result of the Cures Act, medical imagingexams and procedure reports are released immediately into your electronicmedical record. You may view this report before your referring provider.If you have questions, please contact your health care provider. INDICATION: : Trauma COMPARISON: CT chest on May 01, 2021 TECHNIQUE: One view(s) of the chest FINDINGS: The cardiomediastinal silhouette and pulmonary vasculature areunremarkable. There is no focal airspace consolidation, pleural effusion, orpneumothorax. Trace linear atelectatic changes/scarring in the left lowerlung zone. No acute fracture or malalignment. Degenerative changes of the spine andbilateral shoulders. Likely sequela of remote, healed right proximalhumeral fracture, as seen on prior CT chest. Surgical clips along theright axilla/right lateral thoracic wall. IMPRESSION: No acute cardiopulmonary process or acute traumatic injury. Dictated by Roger Lazo MD @ 11/07/2023 12:20:02 PM (Electronically Signed) Asya MCKINNEY [facility] * (ABNORMAL) LIPID PANEL W REFLEX MEASURED LDL (08/02/2023 1:46 PM CDT) CHOLESTEROL,TOTAL 192 100 - 199 mg/dL 08/03/2023 4:51 AM CDT [facility] Comment: Cholesterol, Total Reference Ranges Desirable <200 mg/dL Borderline 200-239 mg/dL High >=240 mg/dL TRIGLYCERIDES 278(H) <150 mg/dL 08/03/2023 4:51 AM CDT [facility] HDL CHOLESTEROL 38(L) >40 mg/dL 4:51 AM CDT [facility] NON-HDL CHOLESTEROL 154(H) <145 mg/dl 08/03/2023 4:51 AM CDT [facility] CHOL/HDL RATIO 5.05(H) <4.50 08/03/2023 4:51 AM CDT [facility] LDL CHOLESTEROL 98 <=130 mg/dL 08/03/2023 4:51 AM CDT [facility] VLDL CHOLESTEROL 56(H) <=30 mg/dL 08/03/2023 4:51 AM CDT [facility] PROVIDER ORDERED STATUS RANDOM 08/03/2023 4:51 AM CDT [facility] Blood BLOOD SPECIMEN / Unknown Venipuncture / Unknown 08/02/2023 1:46 PM CDT 08/02/2023 1:46 PM CDT Arin MCKINNEY CHEMISTRY [facility] [address] [place] [address], * XR MAMMO CONNER UNI SCREEN LEFT (07/09/2023 10:09 AM CDT) Anatomical Region Laterality Modality BREASTS, Breast Left Left Mammography Impressions 07/09/2023 3:45 PM CDT ??There is no radiographic evidence for malignancy. ??Recommend annual mammograms. MAMMOGRAM ASSESSMENT: ??ACR 1 Negative PATIENTS: You will also receive a letter with your examination results in an easy to read format. ??If you have questions about your results, please contact your referring provider. Narrative 07/09/2023 3:45 PM CDT For Patients: As a result of the Cures Act, medical imaging exams and procedure reports are released immediately into your electronic medical record. You may view this report before your referring provider. If you have questions, please contact your health care provider. XR MAMMO CONNER UNI SCREEN LEFT [[id number]] CLINICAL HISTORY: ??This is an asymptomatic 67 y.o. patient. INDICATION FOR EXAM: Mammogram Screening. TECHNIQUE: CC & MLO views were obtained. ??This study was evaluated with the assistance of Computer-Aided Detection. Breast Tomosynthesis was used in interpretation. COMPARISON FILM: Yes 07/06/22 [facility] 03/25/21 [facility] FINDINGS: ??The left breast has scattered areas of fibroglandular density. There are no dominant masses, suspicious micro calcifications or areas of architectural distortion. Arin MCKINNEY MAMMO * SCAN-BONE DENSITOMETRY DEXA (04/18/2023 12:00 AM CHIEF CRUISER) Anatomical Region Laterality Modality Other Scanner OTHER * ANTI HCV (07/06/2020 9:46 AM CDT) HEPATITIS C ANTIBODY Non-React jairo Non-React jairo 07/06/2020 5:43 PM CDT [facility] Comment:Antibodies to HCV no t detected; does not exclude the possibility of exposure to HCV. Blood BLOOD SPECIMEN / Unknown Venipuncture / Unknown 07/06/2020 9:46 AM CDT 07/06/2020 9:46 AM CDT Kate MCKINNEY SEND OUTS [facility] [address] [place] [address], * COLONOSCOPY (12/03/2015 8:41 AM CDT) 12/03/2015 8:41 AM CDT Narrative 12/03/2015 8:41 AM CDT Patient Name: Angelique Tilley ?Procedure Date: 12/03/2015 ? Gender: Female ? Date of : 1955 Admit Type: Outpatient ? Procedure: ?Colonoscopy Proceduralist: ?Luis Manuel Lane MD Indications/Pre-Op Diagnosis: Screening for colorectal malignant neoplasm, ?Last colonoscopy 10 years ago Medications: ?Fentanyl 100 micrograms IV, Midazolam 4 mg IV ? Procedure Description: ? The patient had risks, benefits and alternatives explained to and gave ? informed consent. The patient had a stable cardiopulmonary status and ? judged an adequate candidate for conscious sedation. ? The PCF-Q290AL [id number] was passed through the anus and advanced to the ? cecum, identified by appendiceal orifice and ileocecal valve. The ? colonoscopy was performed without difficulty. The patient tolerated the ? procedure well. The quality of the bowel preparation was excellent. The ? ileocecal valve, appendiceal orifice, and rectum were photographed. ? Complications: ?No immediate complications. Estimated Blood Loss & Specimen: ? Estimated blood loss: none. Specimen collected - None ? Findings: ? The perianal and digital rectal examinations were normal. ? The entire examined colon appeared normal on direct and retroflexion ? views. ? Impressions/Post-Op Diagnosis: ? - The entire examined colon is normal on direct and retroflexion views. ? - No specimens collected. ? Recommendation: ? - Resume previous diet. ? - Continue present medications. ? - Repeat colonoscopy in 10 years for screening purposes. ? Luis Manuel Lane MD 12/03/2015 9:14:40 AM This report has been signed electronically. Note Initiated On: 12/03/2015 8:41 AM Procedure Code(s): ?--- Professional --- ?G0121, Colorectal cancer screening; colonoscopy ?on individual not meeting criteria for high risk Diagnosis Code(s): ?--- Professional --- ?Z12.11, Encounter for screening for malignant ?neoplasm of colon CPT copyright 2015 [employer]. All rights reserved. The codes documented in this report are preliminary and upon assistant kitchen manager review may be revised to meet current compliance requirements. Scope In: 8:57:47 AM Scope Withdrawal Time 0 hours 8 minutes 20 seconds Scope Out: 9:08:07 AM Procedure Note Luis Manuel Lane MD - 12/03/2015 9:14 AM CDT Patient Name: Angelique Tilley Procedure Date: 12/03/2015 Gender: Female Date of : 1955 Admit Type: Outpatient Procedure: Colonoscopy Proceduralist: Luis Manuel Lane MD Indications/Pre-Op Diagnosis: Screening for colorectal malignant neoplasm, Last colonoscopy 10 years ago Medications: Fentanyl 100 micrograms IV, Midazolam 4 mgIV Procedure Description: The patient had risks, benefits and alternatives explained to andgave informed consent. The patient had a stable cardiopulmonary status and judged an adequate candidate for conscious sedation. The PCF-Q290AL [id number] was passed through the anus and advanced tothe cecum, identified by appendiceal orifice and ileocecal valve. The colonoscopy was performed without difficulty. The patient toleratedthe procedure well. The quality of the bowel preparation was excellent.The ileocecal valve, appendiceal orifice, and rectum were photographed. Complications: No immediate complications. Estimated Blood Loss & Specimen: Estimated blood loss: none. Specimen collected - None Findings: The perianal and digital rectal examinations were normal. The entire examined colon appeared normal on direct and retroflexion views. Impressions/Post-Op Diagnosis: - The entire examined colon is normal on direct and retroflexionviews. - No specimens collected. Recommendation: - Resume previous diet. - Continue present medications. - Repeat colonoscopy in 10 years for screening purposes. Luis Manuel Lane MD 12/03/2015 9:14:40 AM This report has been signed electronically. Note Initiated On: 12/03/2015 8:41 AM Procedure Code(s): --- Professional --- G0121, Colorectal cancer screening;colonoscopy on individual not meeting criteria for highrisk Diagnosis Code(s): --- Professional --- Z12.11, Encounter for screening formalignant neoplasm of colon CPT copyright 2015 [employer]. All rights reserved. The codes documented in this report are preliminary and upon assistant kitchen manager reviewmay be revised to meet current compliance requirements. Scope In: 8:57:47 AM Scope Withdrawal Time 0 hours 8 minutes 20 seconds Scope Out: 9:08:[address] MD PROCEDURE ORD from Last 3 Months or Most Recently Relevant to Health Maintenance Care Teams Research And Development Director Relationship Specialty Start Date End Date Arin Mejia PA [address] [place] [address] PCP - General Physician Chemical Pumper 09/25/22
== END 2023-12-18 10:27 | disposition home or self-care (01) ==
LOC: US 10:27
PROVIDERS: PCP Physician Assistant; Visit Provider Physician Assistant
DX: R22.31 Localized swelling, mass and lump, right upper limb (principal); C50.911 Malignant neoplasm of unspecified site of right female breast
CPT/HCPCS: 76604; 76882

== ENCOUNTER 2024-04-07 10:00 | Outpatient (RCR) | payer MEDICARE, BC, SELFPAY ==
--- NOTE | 2023-12-21 09:42 | ONC.NURNOTE ---
Patient informed Britney Floyd PA-C has reviewed her chest and axilla US and there is no concerning findings. Patient verbalizes understanding.
== END 2024-06-07 23:59 | disposition home or self-care (01) ==
LOC: CCIC 10:00
PROVIDERS: PCP Physician Assistant; Referring Provider Physician Assistant; Visit Provider Internal Medicine Hematology & Oncology
DX: C50.911 Malignant neoplasm of unspecified site of right female breast (principal); Z17.0 Estrogen receptor positive status [ER+]; M85.80 Other specified disorders of bone density and structure, unspecified site; Z79.811 Long term (current) use of aromatase inhibitors; E04.2 Nontoxic multinodular goiter
CPT/HCPCS: 99214; 99215; G0463

== ENCOUNTER 2024-04-18 10:38 | Outpatient (CLI) | payer MEDICARE, BC, SELFPAY ==
--- NOTE | 2024-04-18 10:45 | CRLHL7_ITS ---
For Patients: As a result of the Century Cures Act, medical imaging exams and procedure reports are released immediately into your electronic medical record. You may view this report before your referring provider. If you have questions, please contact your health care provider. INDICATION: Non-toxic multinodular goiter COMPARISON: 04/18/2023 TECHNIQUE: Avelar scale and color Doppler images were acquired of the thyroid gland. FINDINGS: Hypoechoic solid nodule right thyroid lobe measures 9 x 6 x 11 millimeters, previously measuring 10 x 7 x 9 millimeters, TR 4. Similar hypoechoic nodule measures 10 x 7 x 9 millimeters, previously measuring 9 x 7 x 9 millimeters, TR 4. Solid and cystic nodule left thyroid lobe measures 11 x 5 x 10 millimeters, previously measuring 11 x 5 x 7 millimeters, TR 3. Also solid nodule left thyroid lobe measures 14 x 11 x 13 millimeters, previously measuring 14 x 12 x 16 millimeters, TR 4. Isthmus measures 14 millimeters. The right lobe measures 6.0 x 1.8 x 2.0 cm and the left lobe measures 6.0 x 1.9 x 1.7 cm in size. Thyroid echotexture is heterogeneous. The color Doppler images demonstrate normal vascularity. There is no evidence of cervical lymphadenopathy or parathyroid mass. IMPRESSION: Similar size and morphology of bilateral thyroid nodules. Dictated by Kamari Beckford MD @ 04/21/2024 9:18:46 AM (Electronically Signed)
== END 2024-04-18 10:39 | disposition home or self-care (01) ==
LOC: US 10:40
PROVIDERS: PCP Physician Assistant; Visit Provider Physician Assistant
DX: E04.2 Nontoxic multinodular goiter (principal)
CPT/HCPCS: 76536

== ENCOUNTER 2025-01-19 12:15 | Outpatient (RCR) | payer MEDICARE, BC, SELFPAY ==
[2024-07-28 10:11] LABS: Calcium* 9.8 mg/dL (8.4-10.6); Creatinine* 0.8 mg/dL (0.5-1.5); Estimated Glomerular Filt Rate 81 ml/min
[2024-07-28] MEDS: DENOSUMAB 60 MG/ML SYRINGE SUBCUT (11:32)
[2025-01-19 12:34] LABS: Creatinine* 0.7 mg/dL (0.5-1.5); Estimated Glomerular Filt Rate 95 ml/min
[2025-01-19 12:35] LABS: Calcium* 9.7 mg/dL (8.4-10.6)
[2025-01-19] MEDS: DENOSUMAB 60 MG/ML SYRINGE SUBCUT (13:45)
== END 2025-01-24 23:59 | disposition home or self-care (01) ==
LOC: CCIC 12:15
PROVIDERS: Clinical Nurse Specialist; Physician Assistant; PCP Physician Assistant; Referring Provider Physician Assistant; Visit Provider Internal Medicine Hematology & Oncology
DX: C50.911 Malignant neoplasm of unspecified site of right female breast (principal); Z17.0 Estrogen receptor positive status [ER+]; M85.80 Other specified disorders of bone density and structure, unspecified site; E04.2 Nontoxic multinodular goiter; Z79.811 Long term (current) use of aromatase inhibitors; Z79.83 Long term (current) use of bisphosphonates; Z80.3 Family history of malignant neoplasm of breast; Z90.11 Acquired absence of right breast and nipple
CPT/HCPCS: 36415; 82310; 82565; 96372; 99214; G0463; J0897